=== PATIENT | male | born 1990 | race African-American/Black ===

== ENCOUNTER 2023-03-09 08:29 | Emergency (ER) | payer MEDICAID ==
[~2023-03-09] VITALS: Ht 165.1 cm; Wt 65.0 kg
[2023-03-09 08:34] VITALS: O2SAT 97
[2023-03-09] MEDS ORDERED: MORPHINE SULFATE 4 MG/ML CPJ (NOT FOR IM USE) IV ONE ×2 (09:00→14:15)
[2023-03-09 09:40] LABS: HEMATOCRIT. 50.1 % (42.0-52.0); HEMOGLOBIN. 16.8 g/dL (14.0-18.0); MEAN CORPUSCULAR HEMOGLOBIN 31.7 pg (28.0-32.0); MEAN CORPUSCULAR HGB CONC 33.5 g/dL (31.0-37.0); MEAN CORPUSCULAR VOLUME 94.6 fL (80.0-94.0); MEAN PLATELET VOLUME 7.4 fl (7.4-10.4); PLATELET 324 x1000/uL (130-400); RED CELL DISTRIBUTION WIDTH 13.5 % (11.6-14.6); WHITE BLOOD COUNT 15.7 x1000/uL (4.5-11.0)
[2023-03-09 09:53] LABS: DIFFERENTIAL COMMENT 1
[2023-03-09] MEDS ORDERED: AMPICILLIN SOD/SULBACTAM NA 3 G in SODIUM CHLORIDE 0.9% 100 ML IV SCH (10:00)
[2023-03-09 10:23] LABS: CHLORIDE 105 mEq/L (98-107); INDEX HEMOLYSI 2 (1-3); INDEX ICTERIC 1 (1-4); INDEX LIPEMIC 1 (1-3); POTASSIUM 4.1 mEq/L (3.5-5.1); SODIUM 140 mEq/L (136-145)
[2023-03-09 10:33] LABS: ALANINE AMINOTRANSFERASE 23 IU/L (13-61); ALBUMIN 4.3 g/dL (3.4-5.0); ASPARTATE AMINOTRANSFERASE 39 IU/L (15-37); BILIRUBIN TOTAL 0.6 mg/dL (0.1-1.0); CALCIUM 8.6 mg/dL (8.5-10.1); CARBON DIOXIDE 27 mEq/L (21-32); CREATININE 0.9 mg/dL (0.6-1.3); ETHANOL BLOOD 240 mg/dL (<10); GLUCOSE 102 mg/dL (70-105); PROTEIN TOTAL 8.7 g/dL (6.0-8.3); UREA NITROGEN BLOOD 12 mg/dL (7-21)
[2023-03-09] MEDS ORDERED: IOHEXOL-300 100 ML BOTTLE ONE (10:45)
[2023-03-09 10:48] LABS: PLATELET ESTIMATE NORMAL
[2023-03-09] MEDS ORDERED: DEXT 5%/0.9% NACL 1,000 ML IV ONE (11:15)
[2023-03-09] MEDS ORDERED: SODIUM CHLORIDE 0.9% 1,000 ML IV ONE (11:15)
[2023-03-09] MEDS ORDERED: DOXYCYCLINE HYCLATE 100 MG/VIAL IV ONE (12:00)
[2023-03-09] MEDS ORDERED: DOXYCYCLINE 100MG in DEXTROSE 5% WATER 100ML IV NR (13:00)
[2023-03-09 13:53] VITALS: TEMP 98.2
[2023-03-09 15:23] VITALS: BP 116/61; PULSE 94; RESP 16
== END 2023-03-09 16:25 | disposition short-term general hospital (02) ==
LOC: ER 08:29
DX: S02.609A Fracture of mandible, unspecified, initial encounter for closed fracture (principal); V29.99XA Rider (driver) (passenger) of other motorcycle injured in unspecified traffic accident, initial encounter; Y93.89 Activity, other specified; Y92.89 Other specified places as the place of occurrence of the external cause; Y99.8 Other external cause status
CPT/HCPCS: 80053; 80320; 85025; 85730; 86850; 86900; 86901; 36415; 71045; 70450; 70486; 71260; 72125; 74177; 96367; 96365; 96375; 99291; Q9967; J0295; J3490; J2270; J7042; J7060; J7050; J7030; Z7610 ×3; G0480

== ENCOUNTER 2023-04-10 05:58 | Emergency (ER) | payer MEDICAID ==
[~2023-04-10] VITALS: Ht 182.9 cm; Wt 91.0 kg
[2023-04-10 06:07] VITALS: O2SAT 98
[2023-04-10 06:47] VITALS: BP 121/81; PULSE 128; RESP 16; TEMP 98
== END 2023-04-10 07:19 | disposition home or self-care (01) ==
LOC: ER 05:58
DX: S02.609D Fracture of mandible, unspecified, subsequent encounter for fracture with routine healing (principal); J45.909 Unspecified asthma, uncomplicated; X58.XXXD Exposure to other specified factors, subsequent encounter
CPT/HCPCS: 99283

== ENCOUNTER 2023-10-02 20:58 | Emergency (ER) | payer MEDICAID ==
[~2023-10-02] VITALS: Ht 177.8 cm; Wt 69.0 kg
[2023-10-02 21:09] VITALS: BP 130/67; PULSE 84; RESP 18; TEMP 98; O2SAT 100
== END 2023-10-03 00:17 | disposition home or self-care (01) ==
LOC: ER 20:58
DX: S01.112D Laceration without foreign body of left eyelid and periocular area, subsequent encounter (principal); Z48.02 Encounter for removal of sutures; X58.XXXD Exposure to other specified factors, subsequent encounter
CPT/HCPCS: 99281; Z7610

== ENCOUNTER 2024-08-24 03:01 | Emergency (ER) | payer MEDICAID ==
[~2024-08-24] VITALS: Ht 170.2 cm; Wt 68.0 kg
[2024-08-24 03:16] VITALS: BP 138/80; PULSE 99; RESP 18; TEMP 36.8; O2SAT 98
[2024-08-24] MEDS ORDERED: IBUP-2029 MT (04:40)
== END 2024-08-24 05:03 | disposition home or self-care (01) ==
LOC: ER 03:01
DX: S62.522A Displaced fracture of distal phalanx of left thumb, initial encounter for closed fracture (principal); X58.XXXA Exposure to other specified factors, initial encounter; Y93.89 Activity, other specified; Y92.89 Other specified places as the place of occurrence of the external cause; Y99.8 Other external cause status
CPT/HCPCS: 29125; 73130; 99283

== ENCOUNTER 2024-11-28 06:48 | Emergency (ER) | payer MEDICAID ==
[~2024-11-28] VITALS: Ht 172.7 cm; Wt 80.0 kg
[~2024-11-28 06:48] MED LIST: IBUP-2029 MT
[2024-11-28 06:56] VITALS: O2SAT 99
[2024-11-28] MEDS: KETOROLAC 15MG/ML VIAL IM ONE (09:22)
[2024-11-28] MEDS: LIDOCAINE 5% PATCH TOP ONE (09:23)
[2024-11-28 09:30] VITALS: BP 118/70; PULSE 86; RESP 14; TEMP 36.5; O2SAT 99
== END 2024-11-28 09:39 | disposition home or self-care (01) ==
LOC: ER 07:03
DX: M25.512 Pain in left shoulder (principal); M54.9 Dorsalgia, unspecified
CPT/HCPCS: 96372; 99283; J1885; Z7610